=== PATIENT | female | born 2000 | race Caucasian/White ===

== ENCOUNTER → 2023-12-20 | Outpatient (CLI) | payer SELFPAY | END | disposition home or self-care (01) | LOC: RESCLI 13:02 | PROVIDERS: ATTEND Family Medicine | DX: E10.9 Type 1 diabetes mellitus without complications (principal); Z79.899 Other long term (current) drug therapy; Z98.890 Other specified postprocedural states; Z88.8 Allergy status to other drugs, medicaments and biological substances; Z79.4 Long term (current) use of insulin ==

== ENCOUNTER → 2024-08-01 | Outpatient (CLI) | payer SELFPAY ==
[2024-08-01 11:19] LABS: URINE CREATININE RANDOM 129.09 mg/dL
[2024-08-01 11:50] LABS: ALKALINE PHOSPHATASE 107 U/L (46-116); BUN 12 mg/dl (9-23); CHLORIDE 105 mmol/L (98-107); CHOLESTEROL 169 mg/dL (<200); LDL CHOLESTEROL 93 mg/dL (9-159); POTASSIUM 4.5 mmol/L (3.4-5.1); SGPT/ALT 15 U/L (5-49); TOTAL PROTEIN 7.4 gm/dL (6.0-8.0); TRIGLYCERIDES 41 mg/dl (<150)
== END | disposition home or self-care (01) ==
LOC: LAB 10:10
PROVIDERS: ATTEND General Practice
DX: E10.9 Type 1 diabetes mellitus without complications (principal)

== ENCOUNTER → 2025-10-20 | Outpatient (CLI) | payer SELFPAY ==
[2025-10-22 11:07] LABS: TESTOS, FREE 3.3 pg/mL (0.0-4.2)
== END | disposition home or self-care (01) ==
LOC: LAB 16:18
PROVIDERS: ATTEND Nurse Practitioner Women's Health
DX: N92.6 Irregular menstruation, unspecified (principal)